=== PATIENT | male | born 1990 | race Caucasian/White ===

== ENCOUNTER 2024-04-11 12:47 | Day surgery (SDC) | payer BC ==
[~2024-04-11] VITALS: Ht 167.6 cm; Wt 104.3 kg
[~2024-04-11 12:47] MED LIST: ATOR1TAB19 PO; BAYE81TA7 PO; METO1TAB32 PO
[2024-04-11] MEDS ORDERED: MIDAZOLAM INJ 2MG/2ML VIAL As Ordered ONE (13:38)
[2024-04-11] MEDS ORDERED: LIDOCAINE 2% 100MG/5ML SDV (FOR ANES.) As Ordered ONE (13:38)
[2024-04-11] MEDS ORDERED: propofoL 200 MG/20 ML VIAL As Ordered ONE (13:38)
[2024-04-11] MEDS: LR 1,000 ML IV SCH (13:45)
[2024-04-11] MEDS: ceFAZolin SOD 2 GM in IV 1 EA IV ONE (14:14)
[2024-04-11] MEDS: LIDOCAINE 1% SDV 30ML VIAL As Ordered ONE (14:21)
[2024-04-11] MEDS ORDERED: ACETAMINOPHEN 1000MG 100ML IV BAG As Ordered ONE (14:27)
[2024-04-11] MEDS ORDERED: KETOROLAC 60MG 2ML VIAL As Ordered ONE (14:28)
[2024-04-11] MEDS ORDERED: ONDANSETRON 4MG 2ML VIAL As Ordered ONE (14:28)
[2024-04-11 15:00] VITALS: BP 145/86; TEMP 97.5; O2SAT 99
== END 2024-04-11 15:15 | disposition home or self-care (01) ==
LOC: M SDC 12:47
PROVIDERS: ATTEND Internal Medicine Cardiovascular Disease
DX: Z45.09 Encounter for adjustment and management of other cardiac device (principal); Z86.73 Personal history of transient ischemic attack (TIA), and cerebral infarction without residual deficits; I10 Essential (primary) hypertension; E78.5 Hyperlipidemia, unspecified; Z79.899 Other long term (current) drug therapy
CPT/HCPCS: 33286; J0131; J0690; J1100; J1885; J2250; J2405